=== PATIENT | male | born 1990 | race African-American/Black ===

== ENCOUNTER 2019-03-29 13:47 | Emergency (ER) | payer SELFPAY ==
[~2019-03-29] VITALS: Ht 190.5 cm; Wt 85.0 kg
[2019-03-29] MEDS ORDERED: KETOROLAC 60MG/2ML VIAL IM ONE (17:30)
[2019-03-29 17:50] VITALS: BP 130/65
== END 2019-03-29 18:18 | disposition home or self-care (01) ==
LOC: ER 13:47
DX: S93.601A Unspecified sprain of right foot, initial encounter (principal); S93.401A Sprain of unspecified ligament of right ankle, initial encounter; J45.909 Unspecified asthma, uncomplicated; X50.1XXA Overexertion from prolonged static or awkward postures, initial encounter; Y93.89 Activity, other specified; Y92.89 Other specified places as the place of occurrence of the external cause; Y99.8 Other external cause status
CPT/HCPCS: 73610; 73630; 96372; 99283; J1885